=== PATIENT | female | born 1960 | race Caucasian/White ===

== ENCOUNTER → 2023-07-09 09:22 | Outpatient (REF) | payer MEDICARE, BC, SELFPAY ==
[2023-07-09 10:24] LABS: Hemoglobin 14.3 g/dL (12.0-16.0); Mean Corp Hgb Conc. 35.8 g/dL (33.0-37.0); Mean Corpuscular Hgb 32.3 pg (27.0-31.0); Mean Corpuscular Volume 90.3 fL (81.0-99.0); Mean Platelet Volume 8.5 fL (7.4-10.4); Platelet Count 267 10^3/uL (130-400); Red Blood Cell Count 4.43 10^6/uL (4.20-5.40); Red Cell Dist. Width 11.8 % (11.5-14.5); White Blood Cell Count 7.2 10^3/uL (4.8-10.8)
[2023-07-09 10:40] LABS: Blood Urea Nitrogen 28 mg/dl (7-17); Calcium 10.3 mg/dl (8.4-10.2); Carbon Dioxide 25 mmol/L (22-30); Chloride 100 mmol/L (98-107); Glucose 103 mg/dl (70-99); Potassium 4.4 mmol/L (3.5-5.1); Sodium 134 mmol/L (135-145); eGFR 55.76
== END ==
LOC: SDSPAT 09:22
PROVIDERS: ATTENDING PHYSICIAN Orthopaedic Surgery Hand Surgery; FAMILY PHYSICIAN Family Medicine
DX: Z01.818 Encounter for other preprocedural examination (principal)
CPT/HCPCS: 36415; 80048; 85027; 93005

== ENCOUNTER 2023-07-15 06:12 | Day surgery (SDC) | payer MEDICARE, BC, SELFPAY ==
[2023-07-09 09:46] VITALS: BMI 22.9
[2023-07-15] VITALS (15 sets, daily range): BP systolic 102–143; BP diastolic 64–102; BMI 22.9
[2023-07-15] MEDS: TYLENOL 1000 MG PO (06:28)
[2023-07-15] MEDS: CELEBREX 200 MG PO (06:28)
[2023-07-15] MEDS: NORMOSOL-R 1000 IV (06:30)
[2023-07-15] MEDS: DILAUDID 0.5 MG IV ×4 (09:00→09:48)
[2023-07-15] MEDS: TORADOL 30 MG IV (09:35)
== END 2023-07-15 12:15 | disposition home or self-care (01) ==
LOC: SDS 06:12
PROVIDERS: ATTENDING PHYSICIAN Orthopaedic Surgery Hand Surgery
DX: M75.102 Unspecified rotator cuff tear or rupture of left shoulder, not specified as traumatic (principal); S46.212A Strain of muscle, fascia and tendon of other parts of biceps, left arm, initial encounter; X58.XXXA Exposure to other specified factors, initial encounter; M75.42 Impingement syndrome of left shoulder
CPT/HCPCS: 29827; 29828; 29826; C1713

== ENCOUNTER → 2024-01-21 09:37 | Outpatient (REF) | payer MEDICARE, BC, SELFPAY | LOC: WDC 09:37 | PROVIDERS: ATTENDING PHYSICIAN Family Medicine | DX: N63.14 Unspecified lump in the right breast, lower inner quadrant (principal) | CPT/HCPCS: 76642; 77062; 77066 ==

== ENCOUNTER → 2024-07-07 13:13 | Outpatient (REF) | payer MEDICARE, BC, SELFPAY | LOC: HWRAD 13:13 | PROVIDERS: ATTENDING PHYSICIAN Family Medicine | DX: Z78.0 Asymptomatic menopausal state (principal) | CPT/HCPCS: 77080 ==

== ENCOUNTER → 2024-09-27 11:02 | Outpatient (REF) | payer MEDICARE, BC, SELFPAY | LOC: HWRAD 11:02 | PROVIDERS: ATTENDING PHYSICIAN Physician Assistant Surgical; FAMILY PHYSICIAN Family Medicine | DX: Z47.89 Encounter for other orthopedic aftercare (principal); Z96.611 Presence of right artificial shoulder joint | CPT/HCPCS: 73200 ==

== ENCOUNTER → 2024-10-10 12:26 | Outpatient (REF) | payer MEDICARE, BC, SELFPAY ==
[2024-10-10 12:54] VITALS: BP 139/94; BP_SYST 97
[2024-10-10 14:28] LABS: Body Fluid WBC 4570 /CUMM
[2024-10-10 14:29] LABS: Body Fluid Second Tech ASW
[2024-10-10 15:03] LABS: % Basophils 0.6 % (0-2); % Eosinophils 2.3 % (0-6); % Immature Granulocytes 0.3 % (0-0.5); % Lymphocytes 19.2 % (20.5-51.1); % Monocytes 8.3 % (1.7-9.3); % Neutrophils 69.3 % (42.2-75.2); Absolute Basophils 0.1 10^3/uL (0-0.2); Absolute Eosinophils 0.2 10^3/uL (0-0.7); Absolute Lymphocytes 1.8 10^3/uL (1.2-3.4); Absolute Monocytes 0.8 10^3/uL (0.1-0.6); Absolute Neutrophils 6.5 10^3/uL (1.4-6.5); Hemoglobin 14.1 g/dL (12.0-16.0); Mean Corp Hgb Conc. 35.3 g/dL (33.0-37.0); Mean Corpuscular Hgb 32.6 pg (27.0-31.0); Mean Corpuscular Volume 92.6 fL (81.0-99.0); Mean Platelet Volume 9.5 fL (7.4-10.4); Nucleated Red Blood Cells % 0 %; Platelet Count 281 10^3/uL (130-400); Red Blood Cell Count 4.32 10^6/uL (4.20-5.40); Red Cell Dist. Width 11.2 % (11.5-14.5); White Blood Cell Count 9.3 10^3/uL (4.8-10.8)
[2024-10-10 15:13] LABS: Erythrocyte Sed Rate 8 mm/hour (0-20)
[2024-10-10 15:21] LABS: C-Reactive Protein < 5.00 mg/L (0.0-10.00)
== END ==
LOC: RADI 12:26
PROVIDERS: ATTENDING PHYSICIAN Orthopaedic Surgery Hand Surgery; FAMILY PHYSICIAN Family Medicine
DX: M25.511 Pain in right shoulder (principal); Z96.611 Presence of right artificial shoulder joint
CPT/HCPCS: 20610; 36415; 77002; 85025; 85652; 86140; 87015; 87070; 87075; 87205; 89051

== ENCOUNTER → 2024-11-09 10:19 | Outpatient (REF) | payer MEDICARE, BC, SELFPAY | LOC: RCS 10:19 | PROVIDERS: ATTENDING PHYSICIAN Physician Assistant; FAMILY PHYSICIAN Family Medicine | DX: R94.31 Abnormal electrocardiogram [ECG] [EKG] (principal) | CPT/HCPCS: 93005 ==

== ENCOUNTER → 2024-11-14 07:07 | Outpatient (REF) | payer MEDICARE, BC, SELFPAY | LOC: RCS 07:07 | PROVIDERS: ATTENDING PHYSICIAN Internal Medicine Cardiovascular Disease; FAMILY PHYSICIAN Family Medicine | DX: I49.8 Other specified cardiac arrhythmias (principal) | CPT/HCPCS: 93306 ==

== ENCOUNTER 2024-11-30 10:16 | Day surgery (SDC) | payer MEDICARE, BC, SELFPAY ==
--- NOTE | 2024-11-04 14:28 | CM ---
Demographics: Confirmed
Living situation:Lives independently with spouse
Support Person Post Operatively: Spouse
History of
VN: yes, not current
SNF: none
Outpatient : Pending surgical clearance
Has patient purchased required equipment: yes
PCP: Active, [facility]
Pharmacy:[facility]
Post Operative Discharge Plan: Home with family, pending surgical clearance for PT/OT.
[2024-11-07 11:19] LABS: Hematocrit 40.1 % (37.0-47.0); Hemoglobin 14.2 g/dL (12.0-16.0); Mean Corp Hgb Conc. 35.4 g/dL (33.0-37.0); Mean Corpuscular Volume 92.0 fL (81.0-99.0); Platelet Count 247 10^3/uL (130-400); Red Cell Dist. Width 11.8 % (11.5-14.5)
[2024-11-07 11:42] LABS: ALT (SGPT) 21 U/L (0-35); AST (SGOT) 28 U/L (14-36); Albumin 4.6 g/dl (3.5-5.0); Alkaline Phosphatase 89 U/L (38-126); Blood Urea Nitrogen 32 mg/dl (7-17); Calcium 10.1 mg/dl (8.4-10.2); Carbon Dioxide 24 mmol/L (22-30); Chloride 105 mmol/L (98-107); Glucose 113 mg/dl (70-99); Potassium 4.6 mmol/L (3.5-5.1); Sodium 139 mmol/L (135-145); Total Protein 7.7 g/dl (6.3-8.2); eGFR 41.49
[2024-11-07 12:39] LABS: Glycohemoglobin (HgbA1c) 5.1 % (4.0-5.6)
[2024-11-07 14:15] VITALS: BMI 22.6
[2024-11-08 08:49] VITALS: BMI 22.6
[2024-11-30] VITALS (10 sets, daily range): BP systolic 99–137; BP diastolic 74–94; BMI 22.6
[2024-11-30] MEDS: CELEBREX 200 MG PO (10:37)
[2024-11-30] MEDS: TYLENOL 1000 MG PO (10:38)
[2024-11-30] MEDS: NORMOSOL-R/PLASMALYTE-A 1000 IV (10:42)
[2024-11-30] MEDS: ANCEF 5 IV (18:41)
== END 2024-11-30 19:02 | disposition home or self-care (01) ==
LOC: SDS 10:16
PROVIDERS: ATTENDING PHYSICIAN Orthopaedic Surgery Hand Surgery; FAMILY PHYSICIAN Family Medicine
PROC: 0RRJ0J7 Replacement of Right Shoulder Joint with Synthetic Substitute, Glenoid Surface, Open Approach (ICD-10-PCS; 2024-11-30)
PROC: 0RPJ0J7 Removal of Synthetic Substitute from Right Shoulder Joint, Glenoid Surface, Open Approach (ICD-10-PCS; 2024-11-30)
DX: T84.038A Mechanical loosening of other internal prosthetic joint, initial encounter (principal); K51.90 Ulcerative colitis, unspecified, without complications; N18.30 Chronic kidney disease, stage 3 unspecified; I12.9 Hypertensive chronic kidney disease with stage 1 through stage 4 chronic kidney disease, or unspecified chronic kidney disease; E78.00 Pure hypercholesterolemia, unspecified; I49.3 Ventricular premature depolarization; R91.1 Solitary pulmonary nodule; K21.9 Gastro-esophageal reflux disease without esophagitis; F32.A Depression, unspecified; F41.9 Anxiety disorder, unspecified; F12.20 Cannabis dependence, uncomplicated; M19.90 Unspecified osteoarthritis, unspecified site; Y83.1 Surgical operation with implant of artificial internal device as the cause of abnormal reaction of the patient, or of later complication, without mention of misadventure at the time of the procedure; Y79.2 Prosthetic and other implants, materials and accessory orthopedic devices associated with adverse incidents; Y92.9 Unspecified place or not applicable; Z96.643 Presence of artificial hip joint, bilateral; Z96.611 Presence of right artificial shoulder joint; Z87.891 Personal history of nicotine dependence
CPT/HCPCS: 23473; 36415; 73020; 80053; 83036; 85027; 86850; 86900; 86901; 87070; 87205; 88305; 88331; 93005; C1713; C1776